=== PATIENT | female | born 1945 | race Caucasian/White ===

== ENCOUNTER → 2022-03-29 | Day surgery (SDC) | payer OTHER | END | disposition home or self-care (01) | LOC: JRADUS-SUR 07:25 | PROVIDERS: ATTEND Obstetrics & Gynecology | PROC: 0H9U3ZX Drainage of Left Breast, Percutaneous Approach, Diagnostic (ICD-10-PCS; principal; 2022-03-29) | DX: C50.912 Malignant neoplasm of unspecified site of left female breast (principal); Z17.0 Estrogen receptor positive status [ER+] | CPT/HCPCS: 19083; 19084; 77065-TC; 87899; 88305-TC; 88342-TC; A4648 ==

== ENCOUNTER 2022-06-13 04:39 | Inpatient (IN) | payer OTHER ==
[2022-06-08 15:44] VITALS: BMI 28.5
[2022-06-13] MEDS ORDERED: LIDOCAINE HCL 1%, 10 MG/ML (20ML VIAL) ONE (09:23)
[2022-06-13] MEDS ORDERED: ISOSULFAN BLUE 50 MG/5 ML VIAL SQ ONE (09:23)
[2022-06-13] MEDS ORDERED: ceFAZolin SODIUM 1 GM VIAL IVPB ONE (10:11)
[2022-06-13] MEDS ORDERED: PROPOFOL 20 ML ONE (10:50)
[2022-06-13] MEDS ORDERED: HYDROmorphone HCl 2 MG/ML VIAL IVPUSH PRN (11:25)
[2022-06-13] MEDS ORDERED: ACETAMINOPHEN 500 MG TABLET (FP) PO PRN (11:25)
[2022-06-13] MEDS ORDERED: ACETAMINOPHEN 325 MG TABLET (FP) PO PRN ×2 (11:25→12:31)
[2022-06-13] MEDS ORDERED: oxyCODONE HCL 5 MG TABLET PO PRN (11:25)
[2022-06-13] MEDS ORDERED: ONDANSETRON 4 MG/2 ML VIAL IVPB PRN (12:36)
[2022-06-13] MEDS ORDERED: ALPRAZolam 0.25 MG TABLET PO ONE (12:45)
[2022-06-13 16:58] VITALS: RESP 18
[2022-06-13] MEDS ORDERED: HYDROmorphone HCl 2 MG/ML VIAL IVPB PRN (17:21)
[2022-06-13] MEDS: CEFAZOLIN 1 GM in DEXTROSE 5%-WATER - 50 ML IVPB SCH (17:46)
[2022-06-14] MEDS: CEFAZOLIN 1 GM in DEXTROSE 5%-WATER - 50 ML IVPB SCH ×2 (01:47→09:16)
[2022-06-15 14:23] VITALS: BP 139/63; PULSE 76; TEMP 99.8
== END 2022-06-15 18:16 | disposition home or self-care (01) | DRG 581 ==
LOC: JASUSAT 04:39 → J6S 17:06 → JASUSAT 17:07
PROVIDERS: ADMIT Surgery; ATTEND Surgery
PROC: 0HTU0ZZ Resection of Left Breast, Open Approach (ICD-10-PCS; principal; 2022-06-13 09:00)
PROC: 07B60ZX Excision of Left Axillary Lymphatic, Open Approach, Diagnostic (ICD-10-PCS; 2022-06-13 09:00)
DX: C50.912 Malignant neoplasm of unspecified site of left female breast (principal); E03.9 Hypothyroidism, unspecified; I10 Essential (primary) hypertension
CPT/HCPCS: 78195-TC; 88307-TC; 94010; 94760; A9541

== ENCOUNTER 2022-10-31 09:06 | Day surgery (SDC) | payer OTHER ==
[2022-10-31 09:44] LABS: BASO % 0.2 % (0-2.0); EOS % 2.7 % (0-4.5); HEMATOCRIT 36.3 % (32.4-45.2); HEMOGLOBIN 12.1 GM/dL (10.7-15.3); LYMPH % 40.7 % (8-40); MCH 26.2 pg (25.7-33.7); MCHC 33.3 g/dl (32.0-36.0); MEAN CELL VOLUME 78.6 fl (80-96); MEAN PLT VOLUME 8.2 fl (7.5-11.1); MONO % 7.3 % (3.8-10.2); NEUT % 49.1 % (42.8-82.8); PLATELET COUNT 315 10^3/uL (134-434); RBC 4.61 M/mm3 (3.60-5.2); RDW 16.7 % (11.6-15.6)
[2022-10-31] MEDS ORDERED: SODIUM CHLORIDE IVPB ONE (10:00)
[2022-10-31] MEDS ORDERED: TRASTUZUMAB ANNS IVPB ONE (10:00)
[2022-10-31 10:13] LABS: POTASSIUM 4.3 mmol/L (3.5-5.1)
[2022-10-31 10:19] LABS: ALBUMIN 3.5 g/dl (3.4-5.0); BLOOD UREA NITROGEN 24.6 mg/dL (7-18); CALCIUM 9.9 mg/dL (8.5-10.1)
[2022-10-31 10:21] LABS: CREATININE 1.1 mg/dL (0.55-1.3)
[2022-10-31 10:22] LABS: BILIRUBIN,DIRECT 0.1 mg/dL (0.0-0.2); TOT PROT 7.7 g/dl (6.4-8.2)
[2022-10-31 10:23] LABS: BILIRUBIN,TOTAL 0.4 mg/dL (0.2-1)
[2022-10-31 17:31] VITALS: BP 153/76; PULSE 82; RESP 20; TEMP 98.1
== END 2022-10-31 14:00 | disposition home or self-care (01) ==
LOC: JONCCHEMO 09:06 → J7W 09:10 → JONCCHEMO 14:00
PROVIDERS: ATTEND Internal Medicine Hematology & Oncology
PROC: 3E033GC Introduction of Other Therapeutic Substance into Peripheral Vein, Percutaneous Approach (ICD-10-PCS; principal; 2022-10-31)
DX: C50.912 Malignant neoplasm of unspecified site of left female breast (principal)
CPT/HCPCS: 36415; 80048; 80076; 85025; 96365; Q5117

== ENCOUNTER 2022-11-21 09:35 | Day surgery (SDC) | payer OTHER ==
[2022-11-21] MEDS ORDERED: TRASTUZUMAB-ANNS 410 MG in SODIUM CHLORIDE 250 ML IVPB ONE (10:00)
[2022-11-21 10:39] VITALS: RESP 18; TEMP 98.1
[2022-11-21 10:50] LABS: BASO % 0.4 % (0-2.0); EOS % 2.8 % (0-4.5); HEMATOCRIT 35.2 % (32.4-45.2); HEMOGLOBIN 11.5 GM/dL (10.7-15.3); LYMPH % 35.8 % (8-40); MCH 26.8 pg (25.7-33.7); MCHC 32.7 g/dl (32.0-36.0); MONO % 7.6 % (3.8-10.2); NEUT % 53.4 % (42.8-82.8); PLATELET COUNT 297 10^3/uL (134-434); RBC 4.29 M/mm3 (3.60-5.2); RDW 17.4 % (11.6-15.6); WHITE BLOOD COUNT 8.1 K/mm3 (4.0-10.0)
[2022-11-21 11:14] LABS: POTASSIUM 4.4 mmol/L (3.5-5.1)
[2022-11-21 11:15] LABS: CALCIUM 9.8 mg/dL (8.5-10.1)
[2022-11-21 11:17] LABS: ALBUMIN 3.6 g/dl (3.4-5.0)
[2022-11-21 11:20] LABS: BILIRUBIN,DIRECT 0.1 mg/dL (0.0-0.2); BILIRUBIN,TOTAL 0.4 mg/dL (0.2-1); BLOOD UREA NITROGEN 24.7 mg/dL (7-18); CREATININE 1.1 mg/dL (0.55-1.3); TOT PROT 7.7 g/dl (6.4-8.2)
[2022-11-21 15:01] VITALS: BP 137/83; PULSE 82
== END 2022-11-21 13:45 | disposition home or self-care (01) ==
LOC: JONCCHEMO 09:35 → J7W 09:36 → JONCCHEMO 13:45
PROVIDERS: ATTEND Internal Medicine Hematology & Oncology
DX: Z51.11 Encounter for antineoplastic chemotherapy (principal); C50.412 Malignant neoplasm of upper-outer quadrant of left female breast; Z17.0 Estrogen receptor positive status [ER+]
CPT/HCPCS: 36415; 80048; 80076; 85025; 96413; Q5117

== ENCOUNTER 2022-12-12 08:54 | Day surgery (SDC) | payer OTHER ==
[2022-12-12 09:21] LABS: BASO % 0.5 % (0-2.0); EOS % 3.3 % (0-4.5); HEMATOCRIT 36.8 % (32.4-45.2); HEMOGLOBIN 12.1 GM/dL (10.7-15.3); LYMPH % 37.6 % (8-40); MCH 26.8 pg (25.7-33.7); MEAN CELL VOLUME 81.2 fl (80-96); MONO % 7.1 % (3.8-10.2); NEUT % 51.5 % (42.8-82.8); PLATELET COUNT 295 10^3/uL (134-434); RBC 4.53 M/mm3 (3.60-5.2); RDW 16.9 % (11.6-15.6); WHITE BLOOD COUNT 8.7 K/mm3 (4.0-10.0)
[2022-12-12] MEDS ORDERED: TRASTUZUMAB-ANNS 410 MG in SODIUM CHLORIDE 250 ML IVPB ONE (10:00)
[2022-12-12 10:32] LABS: POTASSIUM 4.1 mmol/L (3.5-5.1)
[2022-12-12 10:37] LABS: ALBUMIN 3.7 g/dl (3.4-5.0); BLOOD UREA NITROGEN 17.9 mg/dL (7-18); CALCIUM 9.6 mg/dL (8.5-10.1)
[2022-12-12 10:41] LABS: BILIRUBIN,DIRECT 0.2 mg/dL (0.0-0.2); CREATININE 1.1 mg/dL (0.55-1.3)
[2022-12-12 10:43] LABS: BILIRUBIN,TOTAL 0.4 mg/dL (0.2-1); TOT PROT 7.7 g/dl (6.4-8.2)
[2022-12-12 14:05] VITALS: RESP 18; TEMP 98.1
[2022-12-12 14:07] VITALS: BP 140/67; PULSE 78
== END 2022-12-12 11:50 | disposition home or self-care (01) ==
LOC: JONCCHEMO 08:54 → J7W 08:55 → JONCCHEMO 11:50
PROVIDERS: ATTEND Internal Medicine Hematology & Oncology
DX: Z51.11 Encounter for antineoplastic chemotherapy (principal); C50.412 Malignant neoplasm of upper-outer quadrant of left female breast; Z17.0 Estrogen receptor positive status [ER+]
CPT/HCPCS: 36415; 80048; 80076; 85025; 96413; Q5117

== ENCOUNTER 2023-01-01 09:14 | Day surgery (SDC) | payer OTHER ==
[2023-01-01 10:26] LABS: BASO % 0.6 % (0-2.0); HEMATOCRIT 36.3 % (32.4-45.2); HEMOGLOBIN 12.3 GM/dL (10.7-15.3); LYMPH % 27.7 % (8-40); MCH 27.6 pg (25.7-33.7); MCHC 33.9 g/dl (32.0-36.0); MEAN CELL VOLUME 81.3 fl (80-96); MEAN PLT VOLUME 8.3 fl (7.5-11.1); MONO % 5.8 % (3.8-10.2); NEUT % 62.9 % (42.8-82.8); PLATELET COUNT 314 10^3/uL (134-434); RBC 4.47 M/mm3 (3.60-5.2); RDW 15.8 % (11.6-15.6); WHITE BLOOD COUNT 7.7 K/mm3 (4.0-10.0)
[2023-01-01] MEDS ORDERED: TRASTUZUMAB-ANNS 410 MG in SODIUM CHLORIDE 250 ML IVPB ONE (10:30)
[2023-01-01 10:41] LABS: POTASSIUM 3.9 mmol/L (3.5-5.1)
[2023-01-01 10:45] LABS: ALBUMIN 3.4 g/dl (3.4-5.0); CALCIUM 9.5 mg/dL (8.5-10.1)
[2023-01-01 10:46] LABS: BLOOD UREA NITROGEN 15.9 mg/dL (7-18)
[2023-01-01 10:48] LABS: BILIRUBIN,DIRECT 0.2 mg/dL (0.0-0.2)
[2023-01-01 10:50] LABS: BILIRUBIN,TOTAL 0.6 mg/dL (0.2-1); TOT PROT 7.8 g/dl (6.4-8.2)
[2023-01-01 16:31] VITALS: BP 161/74; PULSE 84; RESP 20; TEMP 98.1
== END 2023-01-01 13:00 | disposition home or self-care (01) ==
LOC: JONCCHEMO 09:14 → J7W 09:16 → JONCCHEMO 13:00
PROVIDERS: ATTEND Internal Medicine Hematology & Oncology
DX: Z51.11 Encounter for antineoplastic chemotherapy (principal); C50.412 Malignant neoplasm of upper-outer quadrant of left female breast; Z17.0 Estrogen receptor positive status [ER+]
CPT/HCPCS: 36415; 80048; 80076; 85025; 96413; Q5117

== ENCOUNTER 2023-02-13 09:33 | Day surgery (SDC) | payer OTHER ==
[2023-02-13] MEDS ORDERED: TRASTUZUMAB-ANNS 410 MG in SODIUM CHLORIDE 250 ML IVPB ONE (10:00)
[2023-02-13 10:32] LABS: BASO % 0.4 % (0-2.0); EOS % 3.5 % (0-4.5); HEMATOCRIT 38.5 % (32.4-45.2); HEMOGLOBIN 12.5 GM/dL (10.7-15.3); MCH 27.1 pg (25.7-33.7); MCHC 32.5 g/dl (32.0-36.0); MEAN CELL VOLUME 83.2 fl (80-96); MONO % 6.7 % (3.8-10.2); NEUT % 46.4 % (42.8-82.8); PLATELET COUNT 326 10^3/uL (134-434); RBC 4.63 M/mm3 (3.60-5.2); RDW 15.5 % (11.6-15.6); WHITE BLOOD COUNT 8.2 K/mm3 (4.0-10.0)
[2023-02-13 11:03] LABS: POTASSIUM 3.6 mmol/L (3.5-5.1)
[2023-02-13 11:05] LABS: CALCIUM 9.5 mg/dL (8.5-10.1)
[2023-02-13 11:06] LABS: ALBUMIN 3.6 g/dl (3.4-5.0); BLOOD UREA NITROGEN 17.6 mg/dL (7-18)
[2023-02-13 11:08] LABS: BILIRUBIN,DIRECT 0.1 mg/dL (0.0-0.2)
[2023-02-13 11:09] LABS: CREATININE 1.1 mg/dL (0.55-1.3)
[2023-02-13 11:10] LABS: BILIRUBIN,TOTAL 0.4 mg/dL (0.2-1); TOT PROT 7.8 g/dl (6.4-8.2)
[2023-02-13 16:42] VITALS: BP 154/84; PULSE 77; RESP 18; TEMP 98
== END 2023-02-13 12:45 | disposition home or self-care (01) ==
LOC: JONCCHEMO 09:33 → J7W 09:43 → JONCCHEMO 12:45
PROVIDERS: ATTEND Internal Medicine Hematology & Oncology
DX: Z51.11 Encounter for antineoplastic chemotherapy (principal); C50.912 Malignant neoplasm of unspecified site of left female breast; Z17.0 Estrogen receptor positive status [ER+]
CPT/HCPCS: 36415; 80048; 80076; 85025; 96413; Q5117

== ENCOUNTER 2023-03-27 08:40 | Day surgery (SDC) | payer OTHER ==
[2023-03-27 09:31] LABS: BASO % 0.5 % (0-2.0); HEMATOCRIT 36.8 % (32.4-45.2); HEMOGLOBIN 12.6 GM/dL (10.7-15.3); LYMPH % 34.9 % (8-40); MCHC 34.3 g/dl (32.0-36.0); MEAN CELL VOLUME 81.6 fl (80-96); MEAN PLT VOLUME 7.9 fl (7.5-11.1); MONO % 5.7 % (3.8-10.2); NEUT % 55.9 % (42.8-82.8); PLATELET COUNT 299 10^3/uL (134-434); RBC 4.51 M/mm3 (3.60-5.2); RDW 15.7 % (11.6-15.6); WHITE BLOOD COUNT 7.4 K/mm3 (4.0-10.0)
[2023-03-27 09:59] LABS: CALCIUM 9.4 mg/dL (8.5-10.1)
[2023-03-27 10:00] LABS: ALBUMIN 3.6 g/dl (3.4-5.0); BLOOD UREA NITROGEN 20.3 mg/dL (7-18)
[2023-03-27] MEDS ORDERED: TRASTUZUMAB-ANNS 410 MG in SODIUM CHLORIDE 250 ML IVPB ONE (10:00)
[2023-03-27 10:02] LABS: BILIRUBIN,DIRECT 0.2 mg/dL (0.0-0.2)
[2023-03-27 10:03] LABS: CREATININE 1.1 mg/dL (0.55-1.3)
[2023-03-27 10:04] LABS: BILIRUBIN,TOTAL 0.5 mg/dL (0.2-1)
[2023-03-27 10:05] LABS: TOT PROT 7.9 g/dl (6.4-8.2)
[2023-03-27 15:39] VITALS: BP 145/69; PULSE 86; RESP 18; TEMP 97.5
== END 2023-03-27 11:45 | disposition home or self-care (01) ==
LOC: JONCCHEMO 08:40 → J7W 08:42 → JONCCHEMO 11:45
PROVIDERS: ATTEND Internal Medicine Hematology & Oncology
DX: Z51.11 Encounter for antineoplastic chemotherapy (principal); C50.912 Malignant neoplasm of unspecified site of left female breast; Z17.0 Estrogen receptor positive status [ER+]
CPT/HCPCS: 36415; 80048; 80076; 85025; 96413; Q5117